=== PATIENT | female | born 1975 | race Two or more races ===

== ENCOUNTER → 2016-12-29 | Outpatient (CLI) | payer MEDICARE, MEDICAID ==
--- NOTE | 2016-12-29 17:37 | WOMENS IMAGING REPORT ---
EXAM DESCRIPTION: 3D SCREENING MAMMO BILAT COMPLETED DATE/TIME: 12/29/2016 10:58 am REASON FOR STUDY: ROUTINE SCREENING; Z12.31 Z12.31 ENCNTR SCREEN MAMMOGRAM FOR MALIGNANT NEOPLASM O F GENO COMPARISON: 2015 TECHNIQUE: Standard craniocaudal and mediolateral oblique views of each breast recorded using digita l acquisition and breast tomosynthesis. LIMITATIONS: None. FINDINGS: No masses, calcifications or architectural distortion. No areas of suspicion. Read with the assistance of CAD. .[facility] - R2 Cenova Version 1.3 .[facility] Imaging - R2 Cenova Version 1.3 .[facility] Imaging - R2 Cenova Version 2.4 .[facility] [place]2 Cenova Version 2.4 .[facility] - R2 Contracts Attorney Version 9.2 IMPRESSION: NORMAL MAMMOGRAM. BIRADS 1. BREAST DENSITY: c. The breasts are heterogeneously dense, which may obscure small masses. BIRAD: 1 NEGATIVE RECOMMENDATION: ROUTINE SCREENING Please continue yearly bilateral screening tomosynthesis in December 2017 COMMENT: The patient has been notified of the results by letter per MQSA requirements. Additional no tification policies are in place for contacting patient with suspicious or incomplete findings. Quality ID #[id number]: The [employer] recommends an annual screening mammogram for women aged 40 years or over. This facility utilizes a reminder system to ensure that all patients receive reminder letters, and/or direct phone calls for appointments. This includes reminders for routine scr eening mammograms, diagnostic mammograms, or other Breast Imaging Interventions when appropriate. Th is patient will be placed in the appropriate reminder system. The [employer] (ACR) has developed recommendations for screening MRI of the breast s in certain patient populations, to be used in conjunction with mammography. Breast MRI surveillanc e may be appropriate for women with more than 20% lifetime risk of developing breast cancer as deter mined by genetic testing, significant family history of the disease, or history of mantle radiation f or Hodgkins Disease. ACR Practice Guidelines 2008. DBT Technology DBT is a type of tomographic mammography. With conventional mammography, overlapping breast tissue ma y make lesions difficult to detect, even with good compression. DBT uses an x-ray tube that rotates a round the breast, taking images at different angles. These images are then combined to create thin sl ices of the breast that the radiologist can view as a 3D reconstruction. The [employer] unit can perform full-field digital mammograms (2D imaging); or DBT (3D imaging); or both, in a combination mode that quickly performs both the mammogram and the tomosynthesis scan while the breast is still compressed. PQRS 6045F: Fluoroscopic imaging is not utilized for breast tomosynthesis. TECHNICAL DOCUMENTATION: FINDING NUMBER: (1) ASSESSMENT: (1) JOB ID: [id number] [employer]- All Rights Reserved
== END ==
LOC: WI 11:05
PROVIDERS: ATTEND Physician Assistant
DX: Z12.31 Encounter for screening mammogram for malignant neoplasm of breast (principal)
CPT/HCPCS: 77063; G0202; 77067

== ENCOUNTER → 2018-02-01 | Outpatient (CLI) | payer MEDICARE, MEDICAID ==
--- NOTE | 2018-02-01 12:59 | WOMENS IMAGING REPORT ---
EXAM DESCRIPTION: 3D SCREENING MAMMO BILAT COMPLETED DATE/TIME: 02/01/2018 10:18 am REASON FOR STUDY: SCREENING MAMMO Z12.31 ENCNTR SCREEN MAMMOGRAM FOR MALIGNANT NEOPLASM OF GENO COMPARISON: 12/29/2016, 12/24/2015 TECHNIQUE: Standard craniocaudal and mediolateral oblique views of each breast recorded using digita l acquisition and breast tomosynthesis. LIMITATIONS: None. FINDINGS: No masses, calcifications or architectural distortion. No areas of suspicion. Read with the assistance of CAD. .[facility] - R2 Cenova Version 1.3 .[facility] Imaging - R2 Cenova Version 1.3 .[facility] Imaging - R2 Cenova Version 2.4 .[facility] [place] R2 Cenova Version 2.4 .[facility] - R2 Milk Pasteurizer Version 9.2 IMPRESSION: NORMAL MAMMOGRAM. BIRADS 1. BREAST DENSITY: b. There are scattered areas of fibroglandular density. BIRAD: 1 NEGATIVE RECOMMENDATION: ROUTINE SCREENING Please continue yearly bilateral screening mammography/tomosynthesis in January 2019 COMMENT: The patient has been notified of the results by letter per SA requirements. Additional no tification policies are in place for contacting patient with suspicious or incomplete findings. Quality ID #225: The [employer] recommends an annual screening mammogram for women aged 40 years or over. This facility utilizes a reminder system to ensure that all patients receive reminder letters, and/or direct phone calls for appointments. This includes reminders for routine scr eening mammograms, diagnostic mammograms, or other Breast Imaging Interventions when appropriate. Th is patient will be placed in the appropriate reminder system. The [employer] (ACR) has developed recommendations for screening MRI of the breast s in certain patient populations, to be used in conjunction with mammography. Breast MRI surveillanc e may be appropriate for women with more than 20% lifetime risk of developing breast cancer as deter mined by genetic testing, significant family history of the disease, or history of mantle radiation f or Hodgkins Disease. ACR Practice Guidelines 2008. DBT Technology DBT is a type of tomographic mammography. With conventional mammography, overlapping breast tissue ma y make lesions difficult to detect, even with good compression. DBT uses an x-ray tube that rotates a round the breast, taking images at different angles. These images are then combined to create thin sl ices of the breast that the radiologist can view as a 3D reconstruction. The [employer] unit can perform full-field digital mammograms (2D imaging); or DBT (3D imaging); or both, in a combination mode that quickly performs both the mammogram and the tomosynthesis scan while the breast is still compressed. PQRS 6045F: Fluoroscopic imaging is not utilized for breast tomosynthesis. TECHNICAL DOCUMENTATION: FINDING NUMBER: (1) ASSESSMENT: (1) JOB ID: [id number] [employer]- All Rights Reserved Reading location - IP/workstation name: [facility]
== END ==
LOC: WI 09:59
PROVIDERS: ATTEND Physician Assistant
DX: Z12.31 Encounter for screening mammogram for malignant neoplasm of breast (principal)
CPT/HCPCS: 77063; 77067

== ENCOUNTER → 2018-08-13 | Outpatient (CLI) | payer MEDICARE, MEDICAID ==
--- NOTE | 2018-08-13 10:37 | RADIOLOGY REPORT (SQ) ---
EXAM DESCRIPTION: U/S ABDOMEN COMPLETE W/DOPPLER COMPLETED DATE/TIME: 08/13/2018 10:11 am REASON FOR STUDY: OTHER SPECIFIED ABDOMINAL HERNIA K45.8 OTH ABDOMINAL HERNIA WITHOUT OBSTRUCTION O R GANGRENE COMPARISON: CT abdomen pelvis [facility] 03/13/2013 CT abdomen pelvis [facility] 09/04/2012 TECHNIQUE: Dynamic and static grayscale images acquired of the abdomen and recorded on PACS. Additio nal selected color Doppler and spectral images recorded. Note: Study does not meet criteria for complete doppler/duplex scan LIMITATIONS: Midline bowel gas FINDINGS: Patient presents with a firm mobile mass along the left lower quadrant anterior abdominal wall. Patient was examined by both myself as well as the reel system operator. This mass does not significan tly move for change in size on Valsalva, and appears discrete from the anterior abdominal wall muscul ature. No internal color flow. Complex cystic lesion with fluid and fine septations with no color f low. This measures 10 x 8 x 7 cm in size and likely represents an old seroma or hematoma. PANCREAS: Not well seen LIVER: No masses. Echotexture normal. LIVER VASCULATURE: Normal directional flow of the main portal vein and hepatic veins. GALLBLADDER: No stones. Normal wall thickness. No pericholecystic fluid. ULTRASOUND-DETECTED RM'S SIGN: Negative. INTRAHEPATIC DUCTS AND COMMON DUCT: CBD and intrahepatic ducts normal caliber. No filling defects. INFERIOR VENA CAVA: Normal flow. AORTA: No aneurysm. RIGHT KIDNEY: Normal size. Normal echogenicity. No solid or suspicious masses. No hydronephros is. No calcifications. LEFT KIDNEY: Normal size. Normal echogenicity. No solid or suspicious masses. No hydronephrosi s. No calcifications. SPLEEN: Normal size. No solid masses. PERITONEAL AND PLEURAL SPACES: No ascites or effusions. IMPRESSION: 10 x 8 x 7 cm complex cystic lesion in the left lower quadrant anterior abdominal wall, likely an old hematoma or seroma. Otherwise unremarkable study TECHNICAL DOCUMENTATION: JOB ID: [id number]- All Rights Reserved Reading location - IP/workstation name: [email or web address]
== END ==
LOC: RAD 08:37
PROVIDERS: ATTEND Physician Assistant
DX: K45.8 Other specified abdominal hernia without obstruction or gangrene (principal)
CPT/HCPCS: 76700; 93976

== ENCOUNTER → 2018-08-20 | Outpatient (CLI) | payer MEDICARE, MEDICAID ==
--- NOTE | 2018-08-20 10:52 | RADIOLOGY REPORT (SQ) ---
EXAM DESCRIPTION: CT ABD/PELVIS WITH IV ORAL COMPLETED DATE/TIME: 08/20/2018 9:26 am REASON FOR STUDY: R19.00 INTRA-ABD AND PELVIC SWELLING, MASS AND LUMP, UNSP SITE R19.00 INTRA-ABD A ND PELVIC SWELLING, MASS AND LUMP, UNSP SI COMPARISON: 09/15/2012 TECHNIQUE: CT scan of the abdomen and pelvis performed using helical scanning technique with dynamic intravenous contrast injection. Oral contrast. Images reviewed with lung, soft tissue, and bone win dows. Reconstructed coronal and sagittal MPR images reviewed. Delayed images for evaluation of the ur inary system also acquired. All images stored on PACS. All CT scanners at this facility use dose modulation, iterative reconstruction, and/or weight based d osing when appropriate to reduce radiation dose to as low as reasonably achievable (ALARA). [facility]: Dose Right [facility]: CareDose [facility]: Dose Right [facility]: Teradose 4D [facility]: CropUp CONTRAST TYPE AND DOSE: contrast/concentration: Isovue 350.00 mg/ml; Total Contrast Delivered: 67.0 ml; Total Saline Delivered: 65.0 ml RENAL FUNCTION: None required. The patient is less than 50 years old. RADIATION DOSE: CT Rad equipment meets quality standard of care and radiation dose reduction techniq ues were employed. CTDIvol: 6.6 - 7.6 mGy. DLP: 692 mGy-cm.. LIMITATIONS: None. FINDINGS: LOWER CHEST: There is a large hiatal hernia. LIVER: Normal size. No masses. No dilated ducts. SPLEEN: Normal size. No focal lesions. PANCREAS: No masses. No significant calcifications. No adjacent inflammation or peripancreatic fluid collections. Pancreatic duct not dilated. GALLBLADDER: No identified stones by CT criteria. No inflammatory changes to suggest cholecystitis. ADRENAL GLANDS: No significant masses or asymmetry. RIGHT KIDNEY AND URETER: No solid masses. No significant calcifications. No hydronephrosis or hyd roureter. LEFT KIDNEY AND URETER: No solid masses. No significant calcifications. No hydronephrosis or hydr oureter. AORTA AND VESSELS: No aneurysm. No dissection. Renal arteries, SMA, celiac without stenosis. RETROPERITONEUM: No retroperitoneal adenopathy, hemorrhage or masses. BOWEL AND PERITONEAL CAVITY: There is considerable retained stool in the colon and rectum. No obviou s bowel mass. APPENDIX: Normal. PELVIS: No mass. No free fluid. Normal bladder. ABDOMINAL WALL: There is a 10 cm well encapsulated fluid collection in the subcutaneous tissues on th e left at the level of the upper pelvis. There is no obvious direct communication with the intraperi toneal structures. BONES: No significant or acute findings. OTHER: No other significant finding. IMPRESSION: 1. There is a 10 cm well encapsulated fluid collection in the subcutaneous tissues the anterior aspect of the upper pelvis. Uncertain etiology. Could represent abscess. Could easily be drained. 2. Large hiatal hernia. 3. Constipation. TECHNICAL DOCUMENTATION: JOB ID: [id number] Quality ID # [id number]: Final reports with documentation of one or more dose reduction techniques (e.g., Au tomated exposure control, adjustment of the mA and/or kV according to patient size, use of iterative reconstruction technique) 2010 [employer]- All Rights Reserved Reading location - IP/workstation name: [email or web address]
== END ==
LOC: RAD 08:58
PROVIDERS: ATTEND Surgery
DX: K44.9 Diaphragmatic hernia without obstruction or gangrene (principal); K59.00 Constipation, unspecified
CPT/HCPCS: 74177

== ENCOUNTER 2018-09-04 10:44 | Day surgery (SDC) | payer MEDICARE, MEDICAID ==
[~2018-09-04 10:44] MED LIST: CEFAZOLIN 1 GM/D5W RTU 1 GM/50 ML RTUPB IV ONE; CEFAZOLIN 1 GM/D5W RTU 1 GM/50 ML RTUPB IV PRN
[2018-09-04 11:28] LABS: HEMATOCRIT 34.4 % (36.0-47.0); MEAN CORPUSCULAR HEMOGLOBIN 24.7 pg (27.0-33.4); MEAN CORPUSCULAR VOLUME 77 fl (80-97); PLATELET COUNT 236 10^3/uL (150-450); RED BLOOD COUNT 4.46 10^6/uL (3.72-5.28); RED CELL DISTRIBUTION WIDTH 14.5 % (11.5-14.0); WHITE BLOOD COUNT 5.5 10^3/uL (4.0-10.5)
[2018-09-04] MEDS ORDERED: PROPOFOL INJ 200 MG/20 ML VIAL IV ONE (11:52)
[2018-09-04] MEDS ORDERED: FENTANYL CITRATE INJ/PF 250 MCG/5 ML AMPULE ONE (11:52)
[2018-09-04] MEDS ORDERED: MIDAZOLAM 2 MG/2 ML INJ ONE (11:52)
[2018-09-04] MEDS ORDERED: BUPIVACAINE HCL 0.25 % INJ/PF (2.5 MG/1 ML) 30 ML VIAL ONE (11:58)
[2018-09-04] MEDS ORDERED: BUPIVACAINE INJ/PF LIPOSOME/PF 266 MG/20 ML SDV ONE (11:59)
[2018-09-04] MEDS ORDERED: PROMETHAZINE HCL INJ 25 MG/1 ML VIAL IV PRN ×2 (12:25)
[2018-09-04] MEDS ORDERED: OXYCODONE-ACETAMINOPHEN 5-325 MG TABLET PO PRN ×3 (12:25→13:10)
[2018-09-04] MEDS ORDERED: MEPERIDINE HCL/PF INJ 25 MG/1 ML DISP.SYRIN IV PRN (12:25)
[2018-09-04] MEDS ORDERED: DIPHENHYDRAMINE HCL 50 MG/ML VIAL IV PRN (12:25)
[2018-09-04] MEDS ORDERED: FENTANYL CITRATE INJ/PF 100 MCG/2 ML AMPUL IV PRN ×3 (12:25)
[2018-09-04] MEDS ORDERED: MORPHINE SULFATE 10 MG/ML INJ IV PRN (12:25)
--- NOTE | 2018-09-04 13:00 | Operative Report ---
Operative Report DATE OF SURGERY: 09/04/18 PREOPERATIVE DIAGNOSIS: Large left lower quadrant abdominal wall complex cyst POSTOPERATIVE DIAGNOSIS: Same consistent with liquefied hematoma OPERATION: 1. Complete excision of abdominal wall cyst. 2. Reinforcement of the abdominal wall fascia. 3. Closure of abdominal wall skin over drain SURGEON: LAUREL LOCKHART 1ST LABORATORY TECHNOLOGIST: TAI GOODWIN ANESTHESIA: GA TISSUE REMOVED OR ALTERED: Cyst, and contents COMPLICATIONS: None ESTIMATED BLOOD LOSS: Scant INTRAOPERATIVE FINDINGS: Below PROCEDURE: The patient was seen in the preop holding area, then taken to the main operating room and general anesthesia was induced. This was created via LMA. The abdominal wall was exposed, prepped and draped in sterile fashion. Surgical plan surgical timeout were conducted. The skin overlying the large left lower quadrant abdominal wall mass was anesthetized with quarter percent Marcaine. Approximately 9 cm incision was made on the skin. Subcutaneous tissue divided with electrocautery. We now used a combination of blunt and electrocautery dissection to completely exteriorize the well matured cyst from the abdominal wall subcutaneous tissue. The cyst was scarred to the anterior abdominal wall fascia. There several Prolene sutures divided during the final fixation points between the cyst and its point of origination which seem to be a smooth, epithelialized surface. There was no george communication with the peritoneal cavity. Final attachments were divided, and the cyst was delivered from the patient's abdominal wall intact. It was opened on the back table by Dr. Lockhart of vertically. Its uncut size was approximately eleven x 8 x 8 cm. It contained old clot and fibrin. We returned to the abdominal wall. There was a defect in the fascia and so this was complicated with a running #1 PDS suture in a continuous fashion, and a horizontal orientation. Again there was no evidence of violation of the peritoneal cavity. A large Stu drain was placed to the inferior skin flap. Wound closed in layers with 3-0 Vicryl, izabela. Exparel, 20 cc full-strength, deployed in the subcutaneous tissue. Patient tolerated procedure well, extubated, taken recovery in stable condition. The physician assistant analyst, Ms. Dale, provided assistance during this case by: Assisting retracting tissue, instillation of local anesthesia and closure of skin incisions.
--- NOTE | 2018-09-04 13:10 | Discharge Summary ---
Discharge Summary (SDC) - Discharge Final Diagnosis: abdominal wall mass Date of Surgery: 09/04/18 Discharge Date: 09/04/18 Condition: Good Forms: ASU Anesthesia D/C Instruction, Discharge POC-Surgical Service Treatment or Instructions: [facility] [address] [address] Wound Care After I&D 1. You may take Toradol 10mg one pill by mouth every six hours as needed for pain. 3. If bleeding occurs postoperatively apply firm pressure over the site for 10 minutes and it will usually stop. If it persists call the office and return during office hours or go to the emergency room in the evenings or weekends. 4. You may shower in 24 hours. It is usually best to remove the outer dressing before the shower. Wash any soap out of the wound daily. Dry the incision completely and re dress with gauze over the incision and around the drain. 5. Empty the drain every 24 hours, measuring the output and recording it on paper. Bring the record of drainage to your office visit. 7. Schedule a follow up to monitor healing. In some cases an excision of the area may be needed in the future to decrease risk of recurrence. 8. Follow up at [facility] in one week. If any problems or questions call during office hours [phone]. If at night or on the weekend you may call [facility] [phone] and ask for the surgicalist relations director. Prescriptions: Ketorolac Tromethamine [Toradol 10 mg Tablet] 10 mg PO Q6HP PRN #20 tablet PRN Reason: Referrals: LAUREL GARCIA MD [ACTIVE STAFF] - 09/16/18 8:15 am Discharge Diet: As Tolerated Discharge Activity: Balance Activity w/Rest, Walk Frequently Report the Following to Your Physician Immediately: Increase in Pain, Fever over 101 Degrees, Unusual Bleeding, Redness, Swelling, Warmth, Increased Soreness, Drainage-Foul Smelling
[2018-09-04 15:55] VITALS: BP 105/71
[2018-09-05] MEDS ORDERED: DEXAMETHASONE SOD PHOSPHATE INJ 4 MG/1 ML VIAL ONE (14:56)
[2018-09-05] MEDS ORDERED: LIDOCAINE 2% INJ-PF (20 MG/ML) 2 ML AMPUL ONE (14:56)
[2018-09-05] MEDS ORDERED: ONDANSETRON HCL INJ/PF 4 MG/2 ML SDV ONE (14:56)
== END 2018-09-04 15:40 | disposition home or self-care (01) ==
LOC: OROUT 10:44
PROVIDERS: ATTEND Surgery
DX: D21.4 Benign neoplasm of connective and other soft tissue of abdomen (principal); D64.9 Anemia, unspecified; K44.9 Diaphragmatic hernia without obstruction or gangrene
CPT/HCPCS: 36415; 85027; 81025; 88305 ×2; 00800; 22902; J2250; J0690; J3010; J2704; C9290; 800

== ENCOUNTER 2018-09-29 10:35 | Emergency (ER) | payer MEDICARE, MEDICAID ==
--- NOTE | 2018-09-29 11:16 | ER Document Report ---
ED Medical Screen (RME) - General Chief Complaint: Wound Infection Stated Complaint: POSSIBLE SURGICAL INFECTION Time Seen by Provider: 09/29/18 10:55 Primary Care Provider: BRANDON DOUGHERTY MD [Primary Care Provider] - Follow up as needed Notes: Patient is a 43-year-old female presents to the emergency department for discharge from a surgical wound on her left lower abdomen. On 09/04/2018 patient was operated on by Dr. Lockhart. A left lower abdominal cyst was removed. Family states this past they saw Dr. Lockhart in office. States they told him about the redness and swelling noted to the surgical site. States patient was placed on Keflex. This morning patient started with purulent drainage from the site which has now dehisced. Yesterday patient's complaining of generalized chills and subjective fever. Patient and family are stating that the redness and swelling is "the same as it always been" they were just worried about the discharge. GENERAL: Alert, interacts well. No acute distress. ABDOMEN: Area of erythema, active purulent drainage with the dehisced tissue noted left lower quadrant. I have greeted and performed a rapid initial assessment of this patient. A comprehensive ED assessment and evaluation of the patient, analysis of test results and completion of the medical decision making process will be conducted by additional ED providers. I have specifically instructed the patient or family members with the patient to immediately return to any nursing staff should anything change in the patient's condition or with their chief complaint. This medical record was dictated with voice recognizing software. There may be grammatical, syntax errors that are unintended. TRAVEL OUTSIDE OF THE [place] IN LAST 30 DAYS: No - Related Data Allergies/Adverse Reactions: No Known Allergies Allergy (Verified 09/04/18 10:54) Past Medical History - Social History Frequency of alcohol use: None Drug Abuse: None - Past Medical History Cardiac Medical History: Denies: Hx Coronary Artery Disease, Hx Heart Attack, Hx Hypertension Pulmonary Medical History: Reports: Hx Sleep Apnea - uses CPAP Denies: Hx Asthma, Hx Bronchitis, Hx COPD, Hx Pneumonia Neurological Medical History: Denies: Hx Cerebrovascular Accident, Hx Seizures Renal/ Medical History: Denies: Hx Peritoneal Dialysis GI Medical History: Reports: Hx Gastroesophageal Reflux Disease - No meds, Hx Hiatal Hernia. Denies: Hx Hepatitis, Hx Ulcer Musculoskeltal Medical History: Denies Hx Arthritis Traumatic Medical History: Reports: Hx Fractures - Lt ankle, approx age 13 Infectious Medical History: Denies: Hx Hepatitis Past Surgical History: Reports: Hx Abdominal Surgery - placement and removal of colostomy, bowel resection x2, hernia repair x2, Hx Bowel Surgery - Colostomy, Hx Section, Hx Colostomy, Hx Gastric Bypass Surgery, Hx Herniorrhaphy - Umbilical, Hx Tonsillectomy, Hx Tubal Ligation. Denies: Hx Mastectomy, Hx Open Heart Surgery, Hx Pacemaker - Immunizations Immunizations up to date: Yes Hx Diphtheria, Pertussis, Tetanus Vaccination: No Physical Exam - Vital signs Vitals: Temp Pulse Resp BP Pulse Ox 98.3 F 92 16 119/67 96 09/29/18 10:40 09/29/18 10:40 09/29/18 10:40 09/29/18 10:40 09/29/18 10:40 Course - Vital Signs Vital signs: Temp Pulse Resp BP Pulse Ox 98.3 F 92 16 119/67 96 09/29/18 10:40 09/29/18 10:40 09/29/18 10:40 09/29/18 10:40 09/29/18 10:40 Doctor's Discharge - Discharge Referrals: BRANDON DOUGHERTY MD [Primary Care Provider] - Follow up as needed
--- NOTE | 2018-09-29 11:52 | ER Document Report ---
ED General - General Mode of Arrival: Ambulatory Information source: Patient TRAVEL OUTSIDE OF THE [place] IN LAST 30 DAYS: No - HPI Onset: Other Onset/Duration: Persistent Severity: Severe Pain Level: 5 Associated symptoms: Fever Exacerbated by: Denies Relieved by: Denies Similar symptoms previously: Yes Recently seen / treated by doctor: Yes <NOE HICKS - Last Filed: 09/29/18 20:10> <JSOE SMITH - Last Filed: 09/29/18 21:55> - General Chief Complaint: Wound Infection Stated Complaint: POSSIBLE SURGICAL INFECTION Time Seen by Provider: 09/29/18 10:55 Primary Care Provider: [facility] [Provider Group] - Follow up tomorrow BRANDON DOUGHERTY MD [Primary Care Provider] - Follow up in 3-5 days Notes: This 43-year-old female presents to the emergency tape with complaints of abdominal pain. Reports she had an abdominal wall cyst excised on September [address] Lockhart. Her reports a LIO drain was placed at that time. He reports this past Sunday the drain fell out. They were evaluated by Dr. Lockhart on . Pt reports she was placed on Keflex at that time because her abdominal incision site was red and painful. He filled the prescription on Sunday and give her her first dose Sunday night. He reports she is had 3 doses of Keflex. She presents today because she is experiencing more pain at the surgical site and it has opened a little. Now she is having a large amount of drainage. Her reports that she had a little bit of a fever on Sunday, but he did not take her temperature. Patient reports abdominal wall very tender to palpate. Patient was prescribed some tramadol but she does not like to take it. No complaints of vomiting diarrhea. Reports last bowel movement was before she had surgery. She reports she was passing gas last night. (NOE HICKS) - Related Data Allergies/Adverse Reactions: No Known Allergies Allergy (Verified 09/04/18 10:54) Past Medical History - General Information source: Patient - Social History Smoking Status: Never Smoker Frequency of alcohol use: None Drug Abuse: None Lives with: Family Family History: Reviewed & Not Pertinent Patient has suicidal ideation: No Patient has homicidal ideation: No - Past Medical History Cardiac Medical History: Denies: Hx Coronary Artery Disease, Hx Heart Attack, Hx Hypertension Pulmonary Medical History: Reports: Hx Sleep Apnea - uses CPAP Denies: Hx Asthma, Hx Bronchitis, Hx COPD, Hx Pneumonia Neurological Medical History: Denies: Hx Cerebrovascular Accident, Hx Seizures Renal/ Medical History: Denies: Hx Peritoneal Dialysis GI Medical History: Reports: Hx Gastroesophageal Reflux Disease - No meds, Hx Hiatal Hernia. Denies: Hx Hepatitis, Hx Ulcer Musculoskeletal Medical History: Denies Hx Arthritis Traumatic Medical History: Reports: Hx Fractures - Lt ankle, approx age 13 Infectious Medical History: Denies: Hx Hepatitis Past Surgical History: Reports: Hx Abdominal Surgery - placement and removal of colostomy, bowel resection x2, hernia repair x2, Hx Bowel Surgery - Colostomy, Hx Section, Hx Colostomy, Hx Gastric Bypass Surgery, Hx Herniorrhaphy - Umbilical, Hx Tonsillectomy, Hx Tubal Ligation. Denies: Hx Mastectomy, Hx Open Heart Surgery, Hx Pacemaker - Immunizations Immunizations up to date: Yes Hx Diphtheria, Pertussis, Tetanus Vaccination: No <NOE HICKS - Last Filed: 09/29/18 20:10> Review of Systems <NOE HICKS - Last Filed: 09/29/18 20:10> - Review of Systems Notes: Review HPI for review of systems., All other systems negative (NOE HICKS) Physical Exam - General General appearance: Alert In distress: Mild - HEENT Head: Normocephalic Eyes: Normal Conjunctiva: Normal Extraocular movements intact: Yes Neck: Normal, Supple. No: Lymphadenopathy - Respiratory Respiratory status: No respiratory distress Chest status: Nontender Breath sounds: Normal Chest palpation: Normal - Cardiovascular Rhythm: Regular Heart sounds: Normal auscultation Murmur: No - Abdominal Inspection: Fresh incision Distension: No distension Tenderness: Tender Adult front & back diagram: 1 - Surgical site with 1 mm of opening draining serosanguineous fluid. Surrounded by erythema. Area tender to palpate firm - Extremities General upper extremity: Normal ROM General lower extremity: Normal ROM - Neurological Neuro grossly intact: Yes Cognition: Normal Orientation: AAOx4 Parrish Coma Scale Eye Opening: Spontaneous Parrish Coma Scale Verbal: Oriented Parrish Coma Scale Motor: Obeys Commands Parrish Coma Scale Total: 15 Speech: Normal - Psychological Associated symptoms: Normal affect, Normal mood - Skin Skin Temperature: Warm Skin Moisture: Dry Skin irregularity: Erythema Location of irregularity: Abdomen Irregularity with: Tenderness, Other - surgical site with 1mm opening draining serosanguinous <NOE HICKS - Last Filed: 09/29/18 20:10> - Vital signs Vitals: Temp Pulse Resp BP Pulse Ox 98.3 F 92 16 119/67 96 09/29/18 10:40 09/29/18 10:40 09/29/18 10:40 09/29/18 10:40 09/29/18 10:40 Course - Laboratory Result Diagrams: 09/29/18 11:10 09/29/18 11:54 - Diagnostic Test Radiology reviewed: Image reviewed, Reports reviewed - Consults SUSHILA Time consulted: 15:00 Consulted provider: will come to ER <NOE HICKS - Last Filed: 09/29/18 20:10> - Laboratory Result Diagrams: 09/29/18 11:10 09/29/18 11:54 <JOSE SMITH - Last Filed: 09/29/18 21:55> - Re-evaluation Re-evalutation: 09/29/18 13:24 This 43-year-old female presents today with abdominal pain. Has history of multiple surgical operations on her abdomen due to a blockage and hernia repair. The recent surgery was on September [address] Lockhart. She presents today with increasing pain and drainage to the surgical site. Recently seen by Dr. Lockhart and placed on Keflex. Patient has a history of low iron reflux and mild MR. She was prescribed Keflex and she is had 3 doses. She was prescribed tramadol but she really does not like to take it. reports mild fever on Sunday but he did not take her temperature. He reports he feels like the redness on her abdomen is about the same. 09/29/18 14:45 Dr. Reeder contacted. Updated on patient history and complaints today. He requested CT abdomen pelvis no IV or oral contrast. Family updated 09/29/18 16:10 Dr Reeder in the emergency department to assess patient. Reports he will do a bedside I&D. Pt educated on plan 09/29/18 18:38 1/2 Enema provided no results, pt requested the enema to stop. Mag citrate ordered, she only drank 1/2 the mag citrate and would not drink anymore. Dr Reeder completed I&D on patient. she is to follow up with the surgical clinic tomorrow 09/29/18 19:40 I attempted to disimpact patient. Very little results. Patient requested me to stop. Attempted to finish the enema, very little infused. Pt was assisted to the [facility] for BM. Discussed with Dr. Reeder. Pt may be discharged home to fu with the clinic tomorrow. pt reports she usually has a bowel movement after eating grapes and applesauce. 09/29/18 20:10 Patient reports that she had passed large amount of stool. PCT reports it was mostly liquid. Report given to MICHAEL Wilson. 09/29/18 20:12 09/29/18 20:12 09/29/18 11:10 09/29/18 11:54 MCV 77 fl (80-97) L 09/29/18 11:10 MCH 24.8 pg (27.0-33.4) L 09/29/18 11:10 MCHC 32.4 g/dL (32.0-36.0) 09/29/18 11:10 RDW 14.2 % (11.5-14.0) H 09/29/18 11:10 Seg Neutrophils % 74.6 % (42-78) 09/29/18 11:10 Lymphocytes % 16.5 % (13-45) 09/29/18 11:10 Monocytes % 7.4 % (3-13) 09/29/18 11:10 Eosinophils % 1.1 % (0-6) 09/29/18 11:10 Basophils % 0.4 % (0-2) 09/29/18 11:10 Absolute Neutrophils 6.8 10^3/uL (1.7-8.2) 09/29/18 11:10 Absolute Lymphocytes 1.5 10^3/uL (0.5-4.7) 09/29/18 11:10 Absolute Monocytes 0.7 10^3/uL (0.1-1.4) 09/29/18 11:10 Absolute Eosinophils 0.1 10^3/uL (0.0-0.6) 09/29/18 11:10 Absolute Basophils 0.0 10^3/uL (0.0-0.2) 09/29/18 11:10 Chloride 104 mmol/L (98-107) 09/29/18 11:54 Carbon Dioxide 28 mmol/L (22-30) 09/29/18 11:54 Anion Gap 9 (5-19) 09/29/18 11:54 Est GFR ( Amer) > 60 (>60) 09/29/18 11:54 Est GFR (Non-Af Amer) > 60 (>60) 09/29/18 11:54 Glucose 97 mg/dL (75-110) 09/29/18 11:54 Lactic Acid 0.6 mmol/L (0.7-2.1) L 09/29/18 11:54 Calcium 10.1 mg/dL (8.4-10.2) 09/29/18 11:54 Total Bilirubin 0.5 mg/dL (0.2-1.3) 09/29/18 11:54 AST 15 U/L (14-36) 09/29/18 11:54 ALT 19 U/L (9-52) 09/29/18 11:54 Alkaline Phosphatase 85 U/L (38-126) 09/29/18 11:54 Total Protein 7.8 g/dL (6.3-8.2) 09/29/18 11:54 Albumin 4.1 g/dL (3.5-5.0) 09/29/18 11:54 Urine Color BOB 09/29/18 14:32 Urine Appearance SLIGHTLY-CLOUDY 09/29/18 14:32 Urine pH 5.0 (5.0-9.0) 09/29/18 14:32 Ur Specific [place] 1.025 09/29/18 14:32 Urine Protein NEGATIVE mg/dL (NEGATIVE) 09/29/18 14:32 Urine Glucose (UA) NEGATIVE mg/dL (NEGATIVE) 09/29/18 14:32 Urine Ketones 20 mg/dL (NEGATIVE) H 09/29/18 14:32 Urine Blood SMALL (NEGATIVE) H 09/29/18 14:32 Urine Nitrite NEGATIVE (NEGATIVE) 09/29/18 14:32 Ur Leukocyte Esterase NEGATIVE (NEGATIVE) 09/29/18 14:32 Urine WBC (Auto) 1 /HPF 09/29/18 14:32 Urine RBC (Auto) 3 /HPF 09/29/18 14:32 09/29/18 11:10 09/29/18 11:54 MCV 77 fl (80-97) L 09/29/18 11:10 MCH 24.8 pg (27.0-33.4) L 09/29/18 11:10 MCHC 32.4 g/dL (32.0-36.0) 09/29/18 11:10 RDW 14.2 % (11.5-14.0) H 09/29/18 11:10 Seg Neutrophils % 74.6 % (42-78) 09/29/18 11:10 Lymphocytes % 16.5 % (13-45) 09/29/18 11:10 Monocytes % 7.4 % (3-13) 09/29/18 11:10 Eosinophils % 1.1 % (0-6) 09/29/18 11:10 Basophils % 0.4 % (0-2) 09/29/18 11:10 Absolute Neutrophils 6.8 10^3/uL (1.7-8.2) 09/29/18 11:10 Absolute Lymphocytes 1.5 10^3/uL (0.5-4.7) 09/29/18 11:10 Absolute Monocytes 0.7 10^3/uL (0.1-1.4) 09/29/18 11:10 Absolute Eosinophils 0.1 10^3/uL (0.0-0.6) 09/29/18 11:10 Absolute Basophils 0.0 10^3/uL (0.0-0.2) 09/29/18 11:10 Chloride 104 mmol/L (98-107) 09/29/18 11:54 Carbon Dioxide 28 mmol/L (22-30) 09/29/18 11:54 Anion Gap 9 (5-19) 09/29/18 11:54 Est GFR ( Amer) > 60 (>60) 09/29/18 11:54 Est GFR (Non-Af Amer) > 60 (>60) 09/29/18 11:54 Glucose 97 mg/dL (75-110) 09/29/18 11:54 Lactic Acid 0.6 mmol/L (0.7-2.1) L 09/29/18 11:54 Calcium 10.1 mg/dL (8.4-10.2) 09/29/18 11:54 Total Bilirubin 0.5 mg/dL (0.2-1.3) 09/29/18 11:54 AST 15 U/L (14-36) 09/29/18 11:54 ALT 19 U/L (9-52) 09/29/18 11:54 Alkaline Phosphatase 85 U/L (38-126) 09/29/18 11:54 Total Protein 7.8 g/dL (6.3-8.2) 09/29/18 11:54 Albumin 4.1 g/dL (3.5-5.0) 09/29/18 11:54 Urine Color BOB 09/29/18 14:32 Urine Appearance SLIGHTLY-CLOUDY 09/29/18 14:32 Urine pH 5.0 (5.0-9.0) 09/29/18 14:32 Ur Specific [place] 1.025 09/29/18 14:32 Urine Protein NEGATIVE mg/dL (NEGATIVE) 09/29/18 14:32 Urine Glucose (UA) NEGATIVE mg/dL (NEGATIVE) 09/29/18 14:32 Urine Ketones 20 mg/dL (NEGATIVE) H 09/29/18 14:32 Urine Blood SMALL (NEGATIVE) H 09/29/18 14:32 Urine Nitrite NEGATIVE (NEGATIVE) 09/29/18 14:32 Ur Leukocyte Esterase NEGATIVE (NEGATIVE) 09/29/18 14:32 Urine WBC (Auto) 1 /HPF 09/29/18 14:32 Urine RBC (Auto) 3 /HPF 09/29/18 14:32 09/29/18 20:[address] 09/29/18 14:44 IMPRESSION: No evidence of abscess or obstruction. Fecal retention. (NOE HICKS) - Vital Signs Vital signs: Temp Pulse Resp BP Pulse Ox 98.6 F 92 14 107/72 98 09/29/18 20:19 09/29/18 10:40 09/29/18 20:11 09/29/18 20:11 09/29/18 20:11 - Laboratory Laboratory results interpreted by me: 09/29/18 09/29/18 09/29/18 11:10 11:54 14:32 Hgb 10.5 L Hct 32.4 L MCV 77 L MCH 24.8 L RDW 14.2 H Lactic Acid 0.6 L Urine Ketones 20 H Urine Blood SMALL H Urine Urobilinogen 4.0 H - Consults SUSHILA Reason for consultation: 09/29/18 16:35 POST OP SURGICAL INFECTION (NOE HICKS) Discharge <NOE HICKS - Last Filed: 09/29/18 20:10> <JOSE SMITH - Last Filed: 09/29/18 21:55> - Discharge Clinical Impression: post surgical abdominal pain, Fecal impaction Constipation Qualifiers: Constipation type: unspecified constipation type Qualified Code(s): K59.00 - Constipation, unspecified Post op infection Qualifiers: Encounter type: initial encounter Postoperative infection type: unspecified type Qualified Code(s): T81.40XA - Infection following a procedure, unspecified, initial encounter Condition: Stable Disposition: HOME, SELF-CARE Instructions: Constipation ([facility]), Fecal Impaction ([facility]) Additional Instructions: *You have been evaluated for post surgical abdominal pain, constipation *Continue to take medication (keflex) as prescribed. Drink mag citrate, eat grapes and applesauce to resolve constipation *Follow up with the surgical clinic tomorrow. Call in the morning to schedule an appointment. *Return to ED for worsening condition, changes, needs, increasing abdominal pain, fever *Return to ED if not better in 24 hours Referrals: BRANDON DOUGHERTY MD [Primary Care Provider] - Follow up in 3-5 days [facility] [Provider Group] - Follow up tomorrow
[2018-09-29 12:07] LABS: ABSOLUTE EOSINOPHILS # (AUTO) 0.1 10^3/uL (0.0-0.6); ABSOLUTE LYMPHOCYTES (AUTO) 1.5 10^3/uL (0.5-4.7); ABSOLUTE MONOCYTES (AUTO) 0.7 10^3/uL (0.1-1.4); ABSOLUTE NEUT (AUTO) 6.8 10^3/uL (1.7-8.2); BASOPHILS % (AUTO) 0.4 % (0-2); EOSINOPHILS % (AUTO) 1.1 % (0-6); HEMATOCRIT 32.4 % (36.0-47.0); HEMOGLOBIN 10.5 g/dL (12.0-15.5); LYMPHOCYTES % (AUTO) 16.5 % (13-45); MEAN CORPUSCULAR HEMOGLOBIN 24.8 pg (27.0-33.4); MEAN CORPUSCULAR HGB CONC 32.4 g/dL (32.0-36.0); MEAN CORPUSCULAR VOLUME 77 fl (80-97); MONOCYTES % (AUTO) 7.4 % (3-13); PLATELET COUNT 317 10^3/uL (150-450); RED BLOOD COUNT 4.24 10^6/uL (3.72-5.28); RED CELL DISTRIBUTION WIDTH 14.2 % (11.5-14.0); SEGMENTED NEUTROPHILS % (AUTO) 74.6 % (42-78); TOTAL CELLS COUNTED % (AUTO) 100 %; WHITE BLOOD COUNT 9.1 10^3/uL (4.0-10.5)
[2018-09-29 12:33] LABS: ALANINE AMINOTRANSFERASE 19 U/L (9-52); ALBUMIN 4.1 g/dL (3.5-5.0); ALKALINE PHOSPHATASE 85 U/L (38-126); ANION GAP 9 (5-19); ASPARTATE AMINO TRANSFERASE 15 U/L (14-36); BILIRUBIN,DIRECT 0.3 mg/dL (0.0-0.4); BILIRUBIN,TOTAL 0.5 mg/dL (0.2-1.3); BLOOD UREA NITROGEN 13 mg/dL (7-20); CALCIUM 10.1 mg/dL (8.4-10.2); CARBON DIOXIDE 28 mmol/L (22-30); CHLORIDE 104 mmol/L (98-107); GLUCOSE 97 mg/dL (75-110); POTASSIUM 4.3 mmol/L (3.6-5.0); SODIUM 141.3 mmol/L (137-145); TOTAL PROTEIN 7.8 g/dL (6.3-8.2)
[2018-09-29 14:58] LABS: APPEARANCE,URINE SLIGHTLY-CLOUDY; BILIRUBIN,URINE NEGATIVE (NEGATIVE); COLOR,URINE AMBER; GLUCOSE, URINE NEGATIVE (NEGATIVE); KETONES,URINE 20 mg/dL (NEGATIVE); LEUKOCYTE ESTERASE,URINE NEGATIVE (NEGATIVE); NITRITE,URINE NEGATIVE (NEGATIVE); PROTEIN,URINE NEGATIVE (NEGATIVE); URINE SPECIFIC GRAVITY 1.025
--- NOTE | 2018-09-29 15:25 | RADIOLOGY REPORT (SQ) ---
EXAM DESCRIPTION: CT ABDOMEN NO ORAL OR IV COMPLETED DATE/TIME: 09/29/2018 3:05 pm REASON FOR STUDY: recent surgery, increased pain COMPARISON: 08/20/2018 TECHNIQUE: CT scan of the abdomen and pelvis performed without intravenous or oral contrast. Images reviewed with lung, soft tissue, and bone windows. Reconstructed coronal and sagittal MPR images revi ewed. All images stored on PACS. All CT scanners at this facility use dose modulation, iterative reconstruction, and/or weight based d osing when appropriate to reduce radiation dose to as low as reasonably achievable (ALARA). [facility]: Dose Right [facility]: CareDose [facility]: Dose Right [facility]: Teradose 4D [facility]: Smart [employer] RADIATION DOSE: CT Rad equipment meets quality standard of care and radiation dose reduction techniq ues were employed. CTDIvol: 6.8 mGy. DLP: 380 mGy-cm.mGy. LIMITATIONS: None. FINDINGS: LOWER CHEST: Large hiatal hernia. NON-CONTRASTED LIVER, SPLEEN, ADRENALS: Evaluation limited by lack of IV contrast. No identified sign ificant masses. PANCREAS: No masses. No peripancreatic inflammatory changes. GALLBLADDER: No identified stones by CT criteria. No inflammatory changes to suggest cholecystitis. RIGHT KIDNEY AND URETER: No suspicious masses. Assessment limited by lack of IV contrast. No signif icant calcifications. No hydronephrosis or hydroureter. LEFT KIDNEY AND URETER: No suspicious masses. Assessment limited by lack of IV contrast. No signifi cant calcifications. No hydronephrosis or hydroureter. AORTA AND RETROPERITONEUM: No aneurysm. No retroperitoneal masses or adenopathy. BOWEL AND PERITONEAL CAVITY: Left upper quadrant small bowel anastomosis. Sigmoid anastomosis. Abun dant stool throughout nondilated colon. No ascites or free air. APPENDIX: Normal. PELVIS, BLADDER, AND ABDOMINAL WALL:Resolving inflammation left lower quadrant anterior abdominal wal l. BONES: No significant findings. OTHER: No other significant finding. IMPRESSION: No evidence of abscess or obstruction. Fecal retention. COMMENT: Quality ID # [id number]: Final reports with documentation of one or more dose reduction techniques (e.g., Automated exposure control, adjustment of the mA and/or kV according to patient size, use of iterative reconstruction technique) TECHNICAL DOCUMENTATION: JOB ID: [id number]- All Rights Reserved Reading location - IP/workstation name: [email or web address]
[2018-09-29] MEDS ORDERED: FENTANYL CITRATE INJ/PF 100 MCG/2 ML AMPUL IV ONE (16:10)
--- NOTE | 2018-09-29 17:04 | PDOC CONSULTATION ---
Consultation Consult Date: 09/29/18 Attending physician:: NOE HICKS Provider Consulted: UMER CONTI Consult reason:: left abdominal wall abscess History of Present Illness Admission Date/PCP: BRANDON DOUGHERTY MD History of Present Illness: LOLA MALIK is a 43 year old female presents to the emergency tape with complaints of abdominal pain. Reports she had an abdominal wall cyst excised on September [address] Lockhart. Her reports a LIO drain was placed at that time. He reports this past Sunday the drain fell out. They were evaluated by Dr. Lockhart on . Pt reports she was placed on Keflex at that time because her abdominal incision site was red and painful. He filled the prescription on Sunday and give her her first dose Sunday night. He reports she is had 3 doses of Keflex. She presents today because she is experiencing more pain at the surgical site and it has opened a little. Now she is having a large amount of drainage. she felt like she had a l fever on Sunday, but he did not take her temperature. Patient reports abdominal wall very tender to palpate. Patient was prescribed some tramadol but she does not like to take it. No complaints of vomiting diarrhea. Reports last bowel movement was before she had surgery. Past Medical History Cardiac Medical History: Denies: Coronary Artery Disease, Myocardial Infarction, Hypertension Pulmonary Medical History: Reports: Sleep Apnea - uses CPAP Denies: Asthma, Bronchitis, Chronic Obstructive Pulmonary Disease (COPD), Pneumonia Neurological Medical History: Denies: Seizures GI Medical History: Reports: Gastroesophageal Reflux Disease - No meds, Hiatal Hernia Denies: Hepatitis Musculoskeltal Medical History: Denies: Arthritis Hematology: Reports: Anemia Denies: Sickle Cell Disease Past Surgical History Past Surgical History: Reports: Section, Colostomy, Gastric Bypass Surgery, Herniorrhaphy - Umbilical, Tonsillectomy, Tubal Ligation Denies: Amputation, Mastectomy, Pacemaker Social History Lives with: Family Smoking Status: Never Smoker Hx Recreational Drug Use: No Hx Prescription Drug Abuse: No Family History Family History: Reviewed & Not Pertinent Parental Family History Reviewed: No Children Family History Reviewed: NA Sibling(s) Family History Reviewed.: NA Medication/Allergy Home Medications: Iron Supplement 1 tab PO QAM 09/03/18 Docusate Sodium [Colace 100 mg Capsule] 100 mg PO DAILY 09/04/18 Tramadol HCl [Ultram 50 mg Tablet] 1 tab PO Q6H PRN 09/29/18 Allergies/Adverse Reactions: No Known Allergies Allergy (Verified 09/04/18 10:54) Review of Systems Constitutional: PRESENT: fatigue, fever(s) Eyes: ABSENT: visual disturbances Ears: ABSENT: hearing changes Nose, Mouth, and Throat: ABSENT: as per HPI, headache(s), mouth pain, sore throat, vertigo, other Cardiovascular: ABSENT: chest pain, dyspnea on exertion, edema, orthropnea, palpitations Respiratory: ABSENT: cough, hemoptysis Gastrointestinal: PRESENT: other - Constipation, left sided abdominal wall pain underneath the incision site Genitourinary: ABSENT: dysuria, hematuria Musculoskeletal: ABSENT: joint swelling Integumentary: ABSENT: rash, wounds Neurological: ABSENT: abnormal gait, abnormal speech, confusion, dizziness, focal weakness, syncope Psychiatric: ABSENT: anxiety, depression, homidical ideation, suicidal ideation Endocrine: ABSENT: cold intolerance, heat intolerance, polydipsia, polyuria Hematologic/Lymphatic: ABSENT: easy bleeding, easy bruising Allergic/Immunologic: ABSENT: as per HPI, seasonal rhinorrhea, other Physical Exam Vital Signs: Temp Pulse Resp BP Pulse Ox 98.3 F 92 16 97/60 L 95 09/29/18 10:40 09/29/18 10:40 09/29/18 15:52 09/29/18 15:52 09/29/18 15:52 Intake & Output 09/28/18 09/29/18 09/30/18 06:59 06:59 06:59 Weight 97.3 kg General appearance: PRESENT: mild distress Head exam: PRESENT: normocephalic Eye exam: PRESENT: EOMI Ear exam: PRESENT: normal external ear exam Mouth exam: PRESENT: moist - She Respiratory exam: PRESENT: clear to auscultation marsha Cardiovascular exam: PRESENT: RRR Pulses: PRESENT: normal radial pulses, normal femoral pulses GI/Abdominal exam: PRESENT: other - Left lower quadrant transverse incision site cellulitic for approximately 3 cm out from the incision site the middle portion of the incision is open draining serous fluid Rectal exam: PRESENT: deferred Extremities exam: PRESENT: full ROM Musculoskeletal exam: PRESENT: full ROM Neurological exam: PRESENT: alert, awake, oriented to person, oriented to place Psychiatric exam: PRESENT: anxious Skin exam: PRESENT: dry Results Laboratory Results: 09/29/18 11:10 09/29/18 11:54 09/29/18 09/29/18 09/29/18 11:10 11:10 11:54 WBC 9.1 RBC 4.24 Hgb 10.5 L Hct 32.4 L MCV 77 L MCH 24.8 L MCHC 32.4 RDW 14.2 H Plt Count 317 Seg Neutrophils % 74.6 Lymphocytes % 16.5 Monocytes % 7.4 Eosinophils % 1.1 Basophils % 0.4 Absolute Neutrophils 6.8 Absolute Lymphocytes 1.5 Absolute Monocytes 0.7 Absolute Eosinophils 0.1 Absolute Basophils 0.0 Sodium Cancelled 141.3 Potassium Cancelled 4.3 Chloride Cancelled 104 Carbon Dioxide Cancelled 28 Anion Gap Cancelled 9 BUN Cancelled 13 Creatinine Cancelled 0.77 Est GFR ( Amer) Cancelled > 60 Est GFR (Non-Af Amer) Cancelled > 60 Glucose Cancelled 97 Lactic Acid Calcium Cancelled 10.1 Total Bilirubin Cancelled 0.5 AST Cancelled 15 ALT Cancelled 19 Alkaline Phosphatase Cancelled 85 Total Protein Cancelled 7.8 Albumin Cancelled 4.1 Urine Color Urine Appearance Urine pH Ur Specific [place] Urine Protein Urine Glucose (UA) Urine Ketones Urine Blood Urine Nitrite Ur Leukocyte Esterase Urine WBC (Auto) Urine RBC (Auto) 09/29/18 09/29/18 11:54 14:32 WBC RBC Hgb Hct MCV MCH MCHC RDW Plt Count Seg Neutrophils % Lymphocytes % Monocytes % Eosinophils % Basophils % Absolute Neutrophils Absolute Lymphocytes Absolute Monocytes Absolute Eosinophils Absolute Basophils Sodium Potassium Chloride Carbon Dioxide Anion Gap BUN Creatinine Est GFR ( Amer) Est GFR (Non-Af Amer) Glucose Lactic Acid 0.6 L Calcium Total Bilirubin AST ALT Alkaline Phosphatase Total Protein Albumin Urine Color BOB Urine Appearance SLIGHTLY-CLOUDY Urine pH 5.0 Ur Specific [place] 1.025 Urine Protein NEGATIVE Urine Glucose (UA) NEGATIVE Urine Ketones 20 H Urine Blood SMALL H Urine Nitrite NEGATIVE Ur Leukocyte Esterase NEGATIVE Urine WBC (Auto) 1 Urine RBC (Auto) 3 Impressions: Abdomen CT 09/29/18 14:44 IMPRESSION: No evidence of abscess or obstruction. Fecal retention. Assessment & Plan - Plan Summary Plan Summary: Impression Status post excision of abdominal wall mass now with cellulitis swelling and drainage of the incision with a postoperative wound infection Plan will plan on opening the wound at bedside and packing Explained the risks and benefits the procedure of the procedure the patient occluding bleeding and the possible need for additional surgery she understands and agrees to proceed
--- NOTE | 2018-09-29 17:07 | Operative Report ---
Nonrecallable Operative Report DATE OF SURGERY: 09/29/18 PREOPERATIVE DIAGNOSIS: Wound infection left lower quadrant abdomen POSTOPERATIVE DIAGNOSIS: Wound infection left lower quadrant abdomen OPERATION: Incision and drainage of surgical wound left lower quadrant abdomen SURGEON: UMER CONTI ANESTHESIA: Local TISSUE REMOVED OR ALTERED: None COMPLICATIONS: None ESTIMATED BLOOD LOSS: 10 cc INTRAOPERATIVE FINDINGS: Indurated fatty tissue ,seroma and small amount of pus PROCEDURE: Patient was found lying on the emergency room [facility] she was given 40 mg of IV fentanyl after adequate prep and drape and site verification the left lower quadrant wound was anesthetized with 1% lidocaine with epinephrine The wound was then bluntly opened with a Angélica clamp and digitalized small loculations were broken up there was a small amount of pus and a significant amount of necrotic fatty tissue the wound was then irrigated with normal saline and packed with a saline soaked gauze sponge was given directions on how to repack the wound 3 times a day with a damp Kerlix sponge Will return to the surgical clinic tomorrow for wound check.
[2018-09-29] MEDS ORDERED: MAGNESIUM CITRATE 296 ML BOTTLE PO ONE (18:09)
[2018-09-29 21:57] VITALS: BP 108/68
== END 2018-09-29 21:57 | disposition home or self-care (01) ==
LOC: ER 10:35
DX: T81.49XA Infection following a procedure, other surgical site, initial encounter (principal); L03.311 Cellulitis of abdominal wall; Y83.8 Other surgical procedures as the cause of abnormal reaction of the patient, or of later complication, without mention of misadventure at the time of the procedure; K59.00 Constipation, unspecified; G89.18 Other acute postprocedural pain; D64.9 Anemia, unspecified; Z79.899 Other long term (current) drug therapy
CPT/HCPCS: 99284; 36415; 87040; 85025; 81025; 80053; 81001; 83605; 74150; 10060; J3490; J3010